=== PATIENT | female | born 1975 | race Caucasian/White ===

== ENCOUNTER 2020-04-24 19:26 | Emergency (ER) | payer BC, SELFPAY ==
[2020-04-24] VITALS (9 sets, daily range): BP systolic 145–156; BP diastolic 90–113; PULSE 93–105; RESP 14–26; TEMP 36.7–37; O2SAT 98–100; BMI 28.3
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
[2020-04-24] MEDS: Ondansetron 4 MG/2 ML Vial IV ×2 (20:16→22:53)
[2020-04-24] MEDS: Morphine 4 MG/ML Syringe IV (20:17)
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
[2020-04-24] MEDS: Diphth,Pertuss(Acell),Tet Vac 0.5 ML Vial IM (21:32)
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
--- NOTE | 2020-04-24 23:06 | RAD_ITS ---
STUDY: X-RAY - LEFT HAND, ATTENTION FIFTH FINGER REASON FOR EXAM: Female, 45 years old. Trauma, pain TECHNIQUE: 3 view(s) of the finger were obtained. COMPARISON: None. FINDINGS: Soft tissue swelling is present. There is no acute fracture or dislocation. No radiopaque foreign body. Overlying bandage material. RAD/Finger(s) Min 2 Views IMPRESSION: Soft tissue swelling. No acute fracture identified. Electronically Signed: Lam Villarreal, at 0:06 EDT Tel , Service support ,
--- NOTE | 2020-04-24 23:06 | RAD_ITS ---
STUDY: X-RAY - RIGHT WRIST REASON FOR EXAM: Female, 45 years old. post reduction TECHNIQUE: 3 view(s) of the wrist were obtained. COMPARISON: April 24, 2020 at 8:49 PM. FINDINGS: Overlying cast sutures fine bony detail. Fractures of distal radial metaphysis and ulnar styloid in near normal anatomic alignment status post reduction. The soft tissue structures are unremarkable. RAD/Wrist min 3 Views IMPRESSION: Wrist in near normal anatomic alignment status post reduction of fractures of the distal radius and ulnar styloid. Electronically Signed: Jose Antonio Aguilar MD at 0:13 EDT , Service support ,
[2020-04-25] VITALS: BP 142/94; PULSE 90; PULSE 91; RESP 11; RESP 12; O2SAT 97; O2SAT 98
[2020-04-25] MEDS: Ondansetron 4 MG/2 ML Vial IV (00:25)
[2020-04-25] MEDS: Morphine 4 MG/ML Syringe IV (00:26)
[2020-04-25 00:27] VITALS: BP 142/94; O2SAT 98
== END 2020-04-25 01:00 | disposition home or self-care (01) ==
PROVIDERS: Emergency Provider Emergency Medicine
DX: S52.501A Unspecified fracture of the lower end of right radius, initial encounter for closed fracture (principal); S52.614A Nondisplaced fracture of right ulna styloid process, initial encounter for closed fracture; V89.9XXA Person injured in unspecified vehicle accident, initial encounter; S00.83XA Contusion of other part of head, initial encounter; S80.02XA Contusion of left knee, initial encounter; S01.511A Laceration without foreign body of lip, initial encounter; S01.111A Laceration without foreign body of right eyelid and periocular area, initial encounter
CPT/HCPCS: 12011; 25605; 29125; 70450; 70486; 72125; 73110; 73140; 73564; 90715; 96374; 96375; 96376; 99285; J7030; A4216; J2405